=== PATIENT | male | born 1950 | race Caucasian/White ===

== ENCOUNTER 2018-06-24 09:29 | Outpatient (CLI) | payer BC ==
[2018-06-24] VITALS (8 sets, daily range): BP systolic 113–146; BP diastolic 70–84; PULSE 57–71
[~2018-06-24] VITALS: Ht 185.4 cm; Wt 69.7 kg
[~2018-06-24 09:29] MED LIST: CARDI-OMEGA1000 MG PO; CEPHALEXIN500 M1 PO; FLONASEALLERGY NS; GLUCOSAMINE 1000 PO; GREEN TEA EXTR250 MG PO; LUTEIN20 M1 PO; MULTIPLE VITAMI1 CAP PO; NORVASC 5MG5 MG/TAB PO; OMEGA 3 120 MG-1 CAP PO; PROBIOTIC FORMU1 CAP PO; VITAMIN C500 MG PO
[2018-06-24 12:22] LABS: GLUCOSE,CSF 52 mg/dL (40-70); TOTAL PROTEIN,CSF 77 mg/dL (15-45)
[2018-06-24 12:24] LABS: CSF APPEARANCE CLEAR; CSF COLOR COLORLESS; CSF RBC 1 /mm3 (0-0)
[2018-06-24 12:25] LABS: CSF MONONUCLEAR 20 % (70-100); CSF POLYMORPHONUCLEAR 0 % (0-6)
[2018-06-28 15:47] LABS: CSF OLIG BD INTERPRETATION 0 bands (<4); CSF OLIGOCLONAL BANDING 3 bands (()); SE OLIGOCLONAL BANDING 3 bands (())
== END 2018-06-24 13:37 | disposition home or self-care (01) ==
LOC: COL.RAD 09:29
PROVIDERS: Family Medicine
DX: C91.90 Lymphoid leukemia, unspecified not having achieved remission (principal); H46.9 Unspecified optic neuritis

== ENCOUNTER → 2022-03-04 | Outpatient (CLI) | payer MEDICARE, BC | LOC: COL.RAD 08:55 | DX: R16.1 Splenomegaly, not elsewhere classified (principal) ==

== ENCOUNTER → 2023-06-11 | Outpatient (CLI) | payer MEDICARE, BC ==
[2006-03-09 10:05] VITALS: TEMP 97.8
== END ==
LOC: CANSCHCLI → COL.RAD 09:36
DX: R16.1 Splenomegaly, not elsewhere classified (principal); C91.10 Chronic lymphocytic leukemia of B-cell type not having achieved remission
CPT/HCPCS: Q9967